=== PATIENT | male | born 1940 | race Hispanic/Latino ===

== ENCOUNTER → 2020-01-07 | Outpatient (CLI) | payer BC, MEDICARE | END | disposition home or self-care (01) | LOC: RAH 13:42 | PROVIDERS: ATTEND Family Medicine | DX: N28.1 Cyst of kidney, acquired (principal); N18.3 Chronic kidney disease, stage 3 (moderate) | CPT/HCPCS: 76770 ==

== ENCOUNTER 2021-02-19 20:00 | Emergency (ER) | payer BC, MEDICARE ==
[~2021-02-19] VITALS: Ht 175.3 cm; Wt 90.7 kg
[2021-02-19] MEDS ORDERED: NACL IV ONE (21:00)
[2021-02-19] MEDS ORDERED: LACTATED RINGERS 1000ML 1,000 ML IV ONE ×2 (21:00→21:14)
[2021-02-19 21:04] LABS: BASOPHILS % (AUTO) 0.4 % (0.0-5.0); EOSINOPHILS % (AUTO) 4.2 % (0.0-8.0); HEMATOCRIT 38.6 % (42-54); LYMPHOCYTES % (AUTO) 11.2 % (21.0-51.0); MEAN CORPUSCULAR HEMOGLOBIN 31.3 pg (27.0-33.0); MEAN CORPUSCULAR HGB CONC 35.2 g/dL (32.0-36.0); MEAN CORPUSCULAR VOLUME 88.7 fL (79-99); MONOCYTES % (AUTO) 7.9 % (3.0-13.0); NEUTROPHILS % (AUTO) 75.9 % (40.0-77.0); PLATELET COUNT (AUTO) 211 K/uL (130-400); RED BLOOD CELL COUNT(AUTO) 4.35 MIL/uL (4.50-6.20); RED CELL DISTRIBUTION WIDTH 12.2 % (11.0-15.5); WHITE BLOOD COUNT (AUTO) 13.5 K/uL (4.8-10.8)
[2021-02-19 21:13] LABS: APPEARANCE,URINE Clear (CLEAR); BILIRUBIN,URINE Negative (NEGATIVE); COLOR,URINE Yellow (YELLOW); GLUCOSE, URINE (UA) Negative (NEGATIVE); KETONES,URINE Negative (NEGATIVE); LEUKOCYTE ESTERASE ,URINE Trace (NEGATIVE); NITRATE,URINE Negative (NEGATIVE); OCCULT BLOOD,URINE Moderate (NEGATIVE); PH,URINE 6.5 (5.0-8.0); PROTEIN,URINE Trace mg/dL (NEGATIVE); UROBILINOGEN,URINE 0.2 mg/dL (0.2-1.0)
[2021-02-19 21:23] LABS: ALBUMIN 3.9 g/dL (3.5-5.0); BILIRUBIN,TOTAL 1.2 mg/dL (0.2-1.0); CREATININE 0.9 mg/dL (0.5-1.5); POTASSIUM 4.4 mmol/L (3.5-5.1); TOTAL PROTEIN, SERUM 7.8 g/dL (6.0-8.3)
[2021-02-19 21:35] LABS: BACTERIA,URINE Moderate /HPF (None Seen); CALCIUM OXALATE CRYSTALS,UR Few /LPF (None Seen); MUCUS,URINE Few LPF (None Seen); SQUAMOUS EPITHELIAL CELL,UR Few /HPF (0-2)
[2021-02-19 21:46] VITALS: BP 182/69
[2021-02-19] MEDS ORDERED: CEFTRIAXONE 1G VIAL IVP ONE (22:00)
[2021-02-19] MEDS ORDERED: 0.9%NACL 1000ML 1,000 ML IV ONE (22:07)
[2021-02-19] MEDS ORDERED: CEPH500B PO (22:13)
[2021-02-19] MEDS ORDERED: CEFTRIAXONE 1G VIAL ONE (22:15)
[2021-02-19 23:20] VITALS: BP 170/55
== END 2021-02-19 23:21 | disposition home or self-care (01) ==
LOC: EDH 20:00
DX: N39.0 Urinary tract infection, site not specified (principal); E86.9 Volume depletion, unspecified; E87.1 Hypo-osmolality and hyponatremia; E03.9 Hypothyroidism, unspecified; E11.9 Type 2 diabetes mellitus without complications; E78.5 Hyperlipidemia, unspecified; I10 Essential (primary) hypertension; Z86.73 Personal history of transient ischemic attack (TIA), and cerebral infarction without residual deficits
CPT/HCPCS: 36415; 80053; 81001; 83690; 84484; 85025; 87088; 96361 ×2; 96374; 99284; J0696; J7030; J7120

== ENCOUNTER 2024-06-24 18:02 | Emergency (ER) | payer MEDICARE, BC ==
[~2024-06-24] VITALS: Ht 175.3 cm; Wt 81.6 kg
[~2024-06-24 18:02] MED LIST: CEPH500B PO
--- NOTE | 2024-06-24 18:17 | ERN ---
ED Note History of Present Illness Stated Complaint: FALL Chief Complaint: Mechanical Fall Time Seen by MD: 18:08 Dictation: Patient comes in. Because not been acting like himself as it was last day. Also to they family believes that he has fallen. Allergies: Coded Allergies: No Known Drug Allergies (Unverified Allergy, Unknown, 02/19/21) Home Meds Active Scripts Cephalexin Monohydrate (Keflex) 500 Mg Cap, 500 MG PO TID for 10 Days, #30 CAP 0 Refills Prov:GILMA FAYE MD 02/19/21 Past Medical History Past Medical History: CVA, Hypertension, Hyperthyroid, TIA, Other Additional Past Medical Hx: PROSTATE SURGERY Surgical History: Other Surgical History Other: PROSTATE Review of System Dictation Constitutional: Negative for fever,chills, and weight loss Eyes: Negative for injury, pain,redness, and discharge ENT: Negative for injury,pain or swelling Cardiovascular: Negative for chest pain, palpitations, and edema Respiratory: Negative for shortness of breath, cough, and wheezing, Abdomen/GI: Negative for abdominal pain, nausea, vomiting, diarrhea, and constipation Back: Negative for injury and pain : Negative for injury, bleeding and discharge MS/Extremity: Negative for injury and deformity Skin: Negative for rash, and discoloration Neuro: Negative for headache, weakness, numbness, tingling, and seizure Psych: Negative for suicide ideation, homicidal ideation, and hallucinations Physical Exam Dictation General: awake, alert, NAD Head/Face: Normocephalic, atraumatic Eyes: PERRL, EOMI, vision at baseline ENT: oral cavity clear, TMs clear, no signs of infection Neck: Trachea midline, supple, no nuchal rigidity Cardiovascular: RRR, normal S1/S2, No MRGs, no JVD Respiratory: CTAB, no respiratory distress, No rales or wheezes Abdomen: Soft, non-tender, non-distended, normal bowel sounds, no guarding or rebound. Skin: Warm, dry, normal turgor, no rash MS/Extremity: Pulses equal, no cyanosis, neurovascular intact, FROM Neuro: COAx4, GCS 15, strength 5/5, CN 2-12 intact, normal cerebellar exam, normal gait, Psych: Normal behavior, mood, and affect normal ED Course ED Course Orders Procedure Category Date Status Time Cbc With Differential LAB 06/24/24 Logged 18:08 Cardiac Panel LAB 06/24/24 Logged 18:08 Chest 1vw RAD 06/24/24 Logged 18:08 12 Lead Ekg Tracing- EKG 06/24/24 Logged Technical 18:08 Urinalysis Profile LAB 06/24/24 Logged 18:08 Troponin I High LAB 06/24/24 Logged Sensitivity 18:08 Ct Head/Brain W/O CT 06/24/24 Logged Contrast 18:08 Ct Cervical Spine W/O CT 06/24/24 Logged Contrast 18:08 Ct Chest/Abd/Pelv W/O CT 06/24/24 Logged Contrast 18:08 Basic Metabolic Panel LAB 06/24/24 Logged 18:08 Ct Thoracic Spine W/O CT 06/24/24 Logged Contrast 18:11 Ct Lumbar Spine W/O CT 06/24/24 Logged Contrast 18:11 Pelvis 1-2vws RAD 06/24/24 Logged 18:11 Lipase LAB 06/24/24 Logged 18:12 Lactic Acid LAB 06/24/24 Logged 18:12 12 Lead Ekg Tracing- EKG 06/24/24 Logged Technical 18:14 Troponin Poc Order LAB 06/24/24 Logged Only 18:14 Bedside Troponin-I LAB.ER 06/24/24 In Process (Poc) 18:14 Haloperidol Inj PHA 06/24/24 In Process (Haldol Inj) 19:00 Current Medications Medications (Trade) Dose Ordered Sig/Lynn Route PRN Reason Start Time Stop Time Status Last Admin Dose Admin Haloperidol Lactate (Haldol Inj) 10 mg ONCE ONCE IM 06/24/24 19:00 06/24/24 19:01 Medical Decision Making MDM Concern for intracranial bleed and she had a thoracic intra-abdominal pathology. Do labs tests imaging. Concern for UTI. Head bleed patient was able to answer simple questions airway is currently intact I had an patient over to incoming colleague. . posterior: Code stroke so scans expedite scans DX & DISP Disposition: Inpatient Departure Impression: Primary Impression: Altered mental status Condition: Stable Referrals: CELINA HARMAN MD (PCP) QUIN NUNEZ MD Jun 24, 2024 18:17
[2024-06-24] MEDS: HALOPERIDOL INJ 5 MG/ML VIAL IM ONE (18:54)
[2024-06-24 19:04] LABS: APPEARANCE,URINE CLEAR (CLEAR); BILIRUBIN,URINE NEGATIVE (NEGATIVE); COLOR,URINE LIGHT-YELLOW (YELLOW); GLUCOSE, URINE (UA) 150 mg/dL (NEGATIVE); KETONES,URINE 10 mg/dL (NEGATIVE); LEUKOCYTE ESTERASE ,URINE NEGATIVE Leu/uL (NEGATIVE); NITRATE,URINE NEGATIVE (NEGATIVE); OCCULT BLOOD,URINE LARGE (NEGATIVE); PROTEIN,URINE 600 mg/dL (NEGATIVE); UROBILINOGEN,URINE 0.2 mg/dL (0.2-1.0)
[2024-06-24 19:11] LABS: ADD UA MICROSCOPIC YES
[2024-06-24 19:14] LABS: BASOPHILS # (AUTO) 0.08 K/uL (0.00-0.20); BASOPHILS % (AUTO) 0.5 % (0.0-5.0); EOSINOPHILS # (AUTO) 0.13 K/uL (0.00-0.70); EOSINOPHILS % (AUTO) 0.9 % (0.0-8.0); HEMATOCRIT 44.3 % (42-54); IMMATURE GRANULOCYTE ABSOLUTE 0.09 K/uL (0-1); LYMPHOCYTES # (AUTO) 1.5 K/uL (1.0-4.8); LYMPHOCYTES % (AUTO) 9.5 % (21.0-51.0); MEAN CORPUSCULAR HEMOGLOBIN 30.1 pg (27.0-33.0); MEAN CORPUSCULAR HGB CONC 33.6 g/dL (32.0-36.0); MEAN CORPUSCULAR VOLUME 89.5 fL (79-99); MONOCYTES % (AUTO) 6.6 % (3.0-13.0); NEUTROPHILS # (AUTO) 12.5 K/uL (1.8-7.7); NEUTROPHILS % (AUTO) 81.9 % (40.0-77.0); PLATELET COUNT (AUTO) 255 K/uL (130-400); RED BLOOD CELL COUNT(AUTO) 4.95 MIL/uL (4.50-6.20); RED CELL DISTRIBUTION WIDTH 13.4 % (11.0-15.5); WHITE BLOOD COUNT (AUTO) 15.2 K/uL (4.8-10.8)
[2024-06-24 19:16] LABS: CREATININE 1.2 mg/dL (0.5-1.3); POTASSIUM 4.1 mmol/L (3.5-5.1)
[2024-06-24 19:16] LABS: MUCUS,URINE RARE LPF (None Seen); RBC,URINE TNTC /HPF (0-1); SQUAMOUS EPITHELIAL CELL,UR RARE /HPF (0-2)
--- NOTE | 2024-06-24 19:17 | HMCIMG ---
CT HEAD WITHOUT CONTRAST INDICATION: Fall TECHNIQUE: Noncontrast axial helical CT images from the vertex through the skull base using 5 mm slice thickness without contrast material. Coronal and sagittal reconstructions were also included. Dose reduction techniques was used using integrated, automated and adaptive dose reduction exposure control. CT was performed with one or more of the following dose reduction techniques: Automated exposure control, adjustment of the mA and/or kV according to patient size, or use of iterative reconstruction technique. COMPARISON: None FINDINGS: Scattered and coalescent subcortical and periventricular white matter low attenuating areas likely represent residual of chronic small vessel arteriopathy and/or remote vascular insult. Chronic large left MCA territory infarct and much smaller right occipitotemporal infarct. Generalized mild cerebral cortical atrophy is present.. No evidence for abnormal extra-axial fluid collections or masses. The ventricles and sulci are normal in size and configuration. No evidence for intracranial parenchymal, epidural, or subdural hemorrhage, mass effect or midline shift. The riojas-white matter differentiation is well preserved. No secondary evidence to suggest acute ischemia. Mild calcific plaque is present along the eagle of the cavernous segments of both internal carotid arteries. The brainstem and cerebellum appear normal. The visualized orbits appear unremarkable. Mild right maxillary sinus mucosal thickening and small left maxillary sinus mucus retention cyst. Trace fluid within both renal sinuses. The calvarium appears normal. IMPRESSION: Chronic white matter ischemic changes, mild brain atrophy, and arteriosclerotic disease as described, without acute component.
--- NOTE | 2024-06-24 19:17 | HMCIMG ---
CT CERVICAL SPINE WITHOUT CONTRAST INDICATION: Neck pain after fall TECHNIQUE: Contiguous axial computed tomography imaging using 2 mm slice thickness through the cervical spine. Reconstructions in the sagittal and coronal planes. CT was performed with one or more of the following dose reduction techniques: Automated exposure control, adjustment of the mA and/or kV according to patient size, or use of iterative reconstruction technique. COMPARISON: None. FINDINGS: Normal lordosis is maintained. Vertebral bodies are normal stature without evidence for compression deformity or fracture. No evidence for subluxation. Multilevel mild to moderate cervical spondylosis. The craniocervical junction appears normal. The atlantoaxial articulation is within normal limits. The dens is intact. The pre- and paravertebral soft tissues appear unremarkable. Mild opacification of the far inferior bilateral mastoid air cells suggesting residual from prior inflammatory process, without any air-fluid levels to suggest acute component. IMPRESSION: No evidence for fracture or subluxation.
[2024-06-24] MEDS: LAbetaLOL 20MG SYG IV ONE (19:50)
[2024-06-24] MEDS ORDERED: IOHEXOL-350 75 ML VIAL IV ONE (20:15)
--- NOTE | 2024-06-24 20:57 | HMCIMG ---
CT THORACIC SPINE WITHOUT CONTRAST INDICATION: Back pain after fall. No specific site of pain/injury provided in patient history. TECHNIQUE: Axial helical 3 mm thick images obtained through the thoracic spine obtained without contrast. Coronal and sagittal reformatted images were submitted for interpretation. CT was performed with one or more of the following dose reduction techniques: Automated exposure control, adjustment of the mA and/or kV according to patient size, or use of iterative reconstruction technique. COMPARISON: None FINDINGS: Diagnostic sensitivity of this examination is limited by patient motion artifact. Vertebral bodies are normal in height, without evidence for fracture or compression deformity. No evidence for subluxation. The intervertebral discs are well-preserved. No significant disc protrusion/extrusion or moderate of high-grade neuroforaminal narrowing or central canal stenosis. Multilevel mild anterior endplate osteophytic spurring. Mild calcific plaque is present along the aortic arch and thoracic aortic eagle without aneurysmal dilation. The paravertebral soft tissues appear normal. IMPRESSION: Extensive motion artifact through the mid thoracic spine. No evidence for fracture or subluxation within the limits of this exam.
--- NOTE | 2024-06-24 21:00 | HMCIMG ---
CT LUMBAR SPINE WITHOUT CONTRAST INDICATION: Back pain after fall 7: No specific site of pain/injury provided in patient history by the ordering service. TECHNIQUE: Noncontrast helical CT of the lumbar spine obtained at 2 mm slice thickness with reconstructions in the coronal and sagittal planes. CT was performed with one or more of the following dose reduction techniques: Automated exposure control, adjustment of the mA and/or kV according to patient size, or use of iterative reconstruction technique. COMPARISON: None FINDINGS: Normal lordosis is maintained. Vertebral bodies are normal in height, without evidence for fracture or compression deformity. No evidence for subluxation. Multilevel mild anterior endplate osteophytic spurring. The sacroiliac joints appear normal. The paravertebral soft tissues appear normal. Mild calcific plaque is noted along the abdominal aortic and iliac vessel eagle without aneurysmal dilation. IMPRESSION: No specific site of pain/injury provided in patient history by the ordering service.
--- NOTE | 2024-06-24 21:03 | HMCIMG ---
CT ANGIOGRAM OF THE HEAD WITHOUT AND WITH CONTRAST. CT ANGIOGRAM OF THE NECK WITHOUT AND WITH CONTRAST. CT RECONSTRUCTIONS WITHOUT AND WITH CONTRAST. INDICATION: Stroke, fall TECHNIQUE: 3-D helical CT acquisition of the head and neck obtained before and after bolus contrast administration of 100 mL of Omnipaque 350 contrast. Volumetric data was transferred to a [employer] workstation for post processing including 3-D volumetric rendering and multiplanar reconstructions (MPR). Reconstructions reformatted in axial, sagittal, and coronal planes. CT was performed with one or more of the following dose reduction techniques: Automated exposure control, adjustment of the mA and/or kV according to patient size, or use of iterative reconstruction technique. COMPARISON: No prior studies available for comparison. FINDINGS: ANTERIOR CIRCULATION: Mild calcific plaque is present along the eagle of the cavernous segments of both internal carotid arteries. Mild calcific plaque along the petrous segment of the left internal carotid artery. The bilateral cervical, right petrous, and bilateral supraclinoid segments of the internal carotid arteries appear normal bilaterally. The bilateral anterior cerebral arteries and middle cerebral arteries and their major branch vessels appear normal. The anterior communicating artery appears normal. Both posterior communicating arteries are visualized and appear normal. No evidence of an aneurysm, significant stenosis, occlusion, or vascular malformation of the anterior circulation. POSTERIOR CIRCULATION: The vertebral arteries are normal in course and caliber. The origins of both posterior inferior cerebellar arteries appear normal. Both anterior inferior cerebellar arteries appear unremarkable. Both superior cerebellar arteries and posterior cerebral arteries appear normal. The vertebrobasilar junction and basilar artery appear unremarkable. No evidence of an aneurysm, significant stenosis, occlusion, or vascular malformation of the posterior circulation. Mild calcific plaque along the aortic arch and proximal great vessel eagle. CAROTID ARTERIES: Mild calcific plaque along the right common carotid arterial bulb eagle. Remainder of the bilateral common, external, and cervical internal carotid arteries appear normal. VERTEBRAL ARTERIES: Both vertebral arteries appear normal along the cervical spine, without evidence for dissection. IMPRESSION: No significant flow-rate limiting stenosis based on NASCET criteria. CAROTID STENOSIS REFERENCE USING NASCET CRITERIA: % ICA stenosis = (1 - narrowest ICA diameter/diameter of distal cervical ICA) x 100. Mild - <50% stenosis. Moderate - 50-69% stenosis. Severe - 70-94% stenosis. Near occlusion - 95-99% stenosis. Occluded - 100% stenosis.
--- NOTE | 2024-06-24 21:08 | HMCIMG ---
CT CHEST WITHOUT CONTRAST. CT ABDOMEN WITHOUT CONTRAST. CT PELVIS WITHOUT CONTRAST INDICATION: Fall; No specific site of pain/injury provided in patient history by the ordering service. TECHNIQUE: Routine 5 mm thick axial images were acquired from the thoracic inlet through the pelvis without contrast. CT was performed with one or more of the following dose reduction techniques: Automated exposure control, adjustment of the mA and/or kV according to patient size, or use of iterative reconstruction technique. COMPARISON: None FINDINGS: Residual contrast material from previous CT angiogram of the head and neck. CT CHEST: The heart size is normal. Coronary arterial wall calcific plaque noted. No pericardial effusion noted. Mild calcific plaque is present along the aortic arch and thoracic aortic eagle without aneurysmal dilation. The trachea and airways are patent. No evidence for pulmonary nodule, consolidation, cavitary lesion, or other abnormal pulmonary parenchymal opacity. No axillary, hilar, or mediastinal lymphadenopathy. No pleural effusion or pneumothorax identified. CT ABDOMEN: The liver is normal in size and smooth in contour without biliary duct dilation. The spleen is normal in size.. The gallbladder appears normal. The pancreas appears normal without pancreatic duct dilation. The adrenal glands appear normal. A few tiny simple right renal cyst. Left kidney appears normal. No evidence for intra-abdominal free air or free or organized fluid collection. Mild calcific plaque is noted along the abdominal aortic and iliac vessel eagle without aneurysmal dilation or dissection. CT PELVIS: No evidence for free air or free or organized pelvic fluid collection. No significant pelvic adenopathy detected. Visualized small and large bowel loops appear unremarkable. Terminal ileum also appears normal. The appendix appears normal. Prostate gland is enlarged. The urinary bladder appears unremarkable. Visible osseous structures are intact. Thoracic and lumbar spine are intact. IMPRESSION: No specific site of pain/injury provided in patient history by the ordering service, and therefore evaluation is slightly limited as a result. Enlarged prostate gland without any acute thoracic, abdominal, pelvic, or spinal injury. Arteriosclerotic disease as described.
--- NOTE | 2024-06-24 22:05 | NUR ---
SPOKE WITH SAMIRA AT [facility] [place] [facility]. TRANSFER REQUEST INITIATED.
--- NOTE | 2024-06-25 00:33 | NUR ---
[facility] [place] WAS CALLED FOR TRANSPORT
--- NOTE | 2024-06-25 00:47 | NUR ---
REPORT CALLED TO RAYNE ROMERO AT [facility] [place] [phone]
[2024-06-25 01:10] VITALS: BP 201/91; PULSE 103; RESP 18; TEMP 97.5; O2SAT 95
--- NOTE | 2024-06-25 05:11 | EKG ---
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
== END 2024-06-25 01:23 | disposition short-term general hospital (02) ==
LOC: EDH 18:02
DX: R41.82 Altered mental status, unspecified (principal); I10 Essential (primary) hypertension; Z86.73 Personal history of transient ischemic attack (TIA), and cerebral infarction without residual deficits
CPT/HCPCS: 99285; 72125; 96374; 82550; 84484 ×2; 80048; 83690; 85025; 83605 ×2; 81001; 36415; 71250; 70496; 72131; 72128; 70498; 74176; 93005; 70450; 96372; J1630; Q9967

== ENCOUNTER 2024-10-09 22:39 | Emergency (ER) | payer MEDICARE ==
[~2024-10-09] VITALS: Ht 167.6 cm; Wt 72.6 kg
[~2024-10-09 22:39] MED LIST changes: +AMLO-258 PO; +ASPI-1197 PO; +ATOR10 PO; -CEPH500B PO; +CLOP-31 PO; +HYDR25TA67 PO; +LEVE-43 PO; +LEVO75CA6 PO; +LISI40TA9 PO; +MACR100 PO; +METF-444 PO; +TAMS-55 PO
[2024-10-10 00:23] LABS: APPEARANCE,URINE CLOUDY (CLEAR); BILIRUBIN,URINE NEGATIVE (NEGATIVE); COLOR,URINE BROWN (YELLOW); GLUCOSE, URINE (UA) NEGATIVE (NEGATIVE); KETONES,URINE 60 mg/dL (NEGATIVE); LEUKOCYTE ESTERASE ,URINE 500 Leu/uL (NEGATIVE); NITRATE,URINE NEGATIVE (NEGATIVE); OCCULT BLOOD,URINE LARGE (NEGATIVE); PH,URINE 5.5 (5.0-8.0); PROTEIN,URINE 100 mg/dL (NEGATIVE); UROBILINOGEN,URINE 0.2 mg/dL (0.2-1.0)
[2024-10-10 00:24] LABS: ADD UA MICROSCOPIC YES
[2024-10-10 00:26] LABS: BACTERIA,URINE FEW /HPF (None Seen); MUCUS,URINE RARE LPF (None Seen); RBC,URINE 26-50 /HPF (0-1); SQUAMOUS EPITHELIAL CELL,UR RARE /HPF (0-2); WBC CLUMP FEW /HPF (0-1); WBC,URINE 51-100 /HPF (0-1)
--- NOTE | 2024-10-10 00:28 | NUR ---
[facility] CATH IRRIGATED 20CC/AFTER IRRIGATION URINE STARTED TO FLOW THROUGH TUBING, SEDEMENTS NOTED, NO LARGE BLOOD CLOT NOTED, URINE TEA IN COLOR.
--- NOTE | 2024-10-10 00:47 | ERN ---
ED Note History of Present Illness Stated Complaint: C/O LEAKING FROM TIP OF CATHETER Chief Complaint: Urinary Catheter Problems Time Seen by MD: 22:45 Dictation: 83-year-old male with past medical history of ischemic stroke, hypertension, hyperlipidemia, pharyngeal cancer, currently on remission, ex- smoker, seizure disorder, who presented to ED via private vehicle with complaint of bloody urine and found to have possible hemorrhagic cystitis, urinary tract infection, and hyponatremia. Who was admitted to the hospital treated and discharged at 11:00 p.m. on Macrobid and various other medications. Apparently patient was sleeping on the daughter's bed and he started leaking urine and he was concerned about the Stewart catheter and came back into the emergency room for further evaluation. Daughter at bedside also collected some urine which is blackish in color. He had a CT abdomen and pelvis which showed prostate enlargement and degenerative changes in the prostate. Temperature 98.6 pulse 110 respirations 20 blood pressure 177/66 with a pulse oximetry of 98% on room air Allergies: Coded Allergies: No Known Drug Allergies (Unverified Allergy, Unknown, 02/19/21) Home Meds Active Scripts Nitrofurantoin/Nitrofuran Mac (Macrobid) 100 Mg Cap, 1 CAP PO BID for 5 Days, #10 CAP 0 Refills Prov:MITESH LAM 10/09/24 Reported Medications Hydralazine HCl (Hydralazine HCl) 25 Mg Tablet, 10 MG PO BID, TAB 10/09/24 Levothyroxine Sodium (Levothyroxine) 75 Mcg Capsule, 1 TAB PO DAILY for 30 Days, #30 CAP 0 Refills 10/09/24 Levetiracetam (Keppra) 500 Mg Tablet, 1 TAB PO BID for 30 Days, #60 TAB 0 Refills 10/09/24 Aspirin (Aspirin) 81 Mg Tab.chew, 1 TAB PO DAILY for 30 Days, #30 TAB 0 Refills 10/09/24 Lisinopril (Lisinopril) 40 Mg Tablet, 40 MG PO BID, TAB 10/09/24 Tamsulosin HCl (Flomax) 0.4 Mg Cap.er.24h, 1 CAP PO DAILY for 30 Days, #30 CAP 0 Refills 10/09/24 Clopidogrel Bisulfate (Plavix) 75 Mg Tablet, 1 TAB PO DAILY for 30 Days, #30 TAB 0 Refills 10/09/24 Amlodipine Besylate (Amlodipine Besylate) 10 Mg Tablet, 1 TAB PO DAILY for 30 Days, #30 TAB 0 Refills 10/09/24 Atorvastatin Calcium (LIPITOR) 10 Mg Tab, 1 TAB PO DAILY for 30 Days, #30 TAB 0 Refills 10/09/24 Metformin HCl (Metformin HCl) 500 Mg Tablet, 1 TAB PO DAILY for 30 Days, #60 TAB 0 Refills 10/09/24 Discontinued Scripts Cephalexin Monohydrate (Keflex) 500 Mg Cap, 500 MG PO TID for 10 Days, #30 CAP 0 Refills Prov:GILMA FAYE MD 02/19/21 Past Medical History Past Medical History: Diabetes-Type II, High Cholesterol, Hypertension, Seizure Additional Past Medical Hx: PROSTATE SURGERY Surgical History: Unknown Surgical History Other: PROSTATE RN Note Reviewed/Agreed w/PFSH: Yes Review of System Dictation Constitutional: Negative for fever,chills, and weight loss Eyes: Negative for injury, pain,redness, and discharge ENT: Negative for injury,pain or swelling Cardiovascular: Negative for chest pain, palpitations, and edema Respiratory: Negative for shortness of breath, cough, and wheezing, Abdomen/GI: Negative for abdominal pain, nausea, vomiting, diarrhea, and constipation Back: Negative for injury and pain : Positive bleeding and indwelling Stewart catheter, malfunctioning and leaking Stewart catheter MS/Extremity: Negative for injury and deformity Skin: Negative for rash, and discoloration Neuro: Negative for headache, weakness, numbness, tingling, and seizure Psych: Negative for suicide ideation, homicidal ideation, and hallucinations Initial Vital Sign VS Vital Signs Date Time Temp Pulse Resp B/P (MAP) Pulse Ox O2 Delivery O2 Flow Rate FiO2 10/09/24 22:41 98.6 110 20 177/66 98 Room Air 10/10/24 00:43 0 21 Physical Exam Dictation General: awake, alert, NAD very pleasant elderly male Head/Face: Normocephalic, atraumatic Eyes: PERRL, EOMI, vision at baseline ENT: oral cavity clear, TMs clear, no signs of infection Neck: Trachea midline, supple, no nuchal rigidity Cardiovascular: RRR, normal S1/S2, No MRGs, no JVD Respiratory: CTAB, no respiratory distress, No rales or wheezes Abdomen: Soft, non-tender, non-distended, normal bowel sounds, no guarding or rebound. Skin: Warm, dry, normal turgor, no rash MS/Extremity: Pulses equal, no cyanosis, neurovascular intact, FROM Neuro: COAx4, GCS 15, strength 5/5, CN 2-12 intact, normal cerebellar exam, normal gait, Psych: Normal behavior, mood, and affect normal Extremities-trace edema without any palpable cords, Homans sign is negative -indwelling Stewart catheter with a 3 way valve Results (Laboratory/Radiology) Laboratory/Radiology Laboratory Tests Test 10/10/24 00:03 Urine Color BROWN (YELLOW) Urine Appearance CLOUDY (CLEAR) H Urine pH 5.5 (5.0-8.0) Urine Specific [place] 1.006 (1.001-1.031) Urine Protein 100 mg/dL (NEGATIVE) H Urine Glucose (UA) NEGATIVE mg/dL (NEGATIVE) Urine Ketones 60 mg/dL (NEGATIVE) H Urine Occult Blood LARGE (NEGATIVE) H Urine Nitrate NEGATIVE (NEGATIVE) Urine Bilirubin NEGATIVE mg/dL (NEGATIVE) Urine Urobilinogen 0.2 mg/dL (0.2-1.0) Urine Leukocyte Esterase 500 Naldo/uL (NEGATIVE) H Urine RBC 26-50 /HPF (0-1) H Urine WBC 51-100 /HPF (0-1) H Urine WBC Clumps (Auto) FEW /HPF (0-1) Urine Squamous Epithelial Cells RARE /HPF (0-2) Urine Bacteria FEW /HPF (None Seen) Labs Reviewed?: Yes ED Course ED Course Orders Procedure Category Date Status Time Urinalysis Profile LAB 10/09/24 Complete 23:14 Vital Signs Date Time Temp Pulse Resp B/P (MAP) Pulse Ox O2 Delivery O2 Flow Rate FiO2 10/10/24 00:43 98.4 94 18 161/62 100 Room Air* 0 21 10/09/24 22:41 98.6 110 20 177/66 98 Room Air We will perform diagnostic labs, and administer medications according to the patient's complaint. Once the results are available, will review and personally interpreted the labs to rule out any acute life-threatening emergency the trach require immediate intervention and treatment. I will then re-evaluate the patient after treatment and diagnostic exams have return to determine whether the patient requires any further testing, can safely be discharged home or need further admission to hospital for additional treatment and evaluation. Urinalysis showed large amounts of leuko esterase blood and WBCs. RN and I trouble shooting the Stewart catheter and the Stewart balloon seems to have decent amount of saline. Once the Stewart catheter was flushed 200 cc of urine started coming out and flowing easily. Patient already has Macrobid given during the hospital stay today at [place]. Reviewed the labs to see if there was any information about the cultures which is still pending Discharge to home to follow up with Dr. Harman his PCP and Dr. Hager, urologist Medical Decision Making MDM MDM: Differential diagnosis: Malfunctioning Stewart, leaking Stewart--persistent infection with sediment or Stewart blockage with clots or the bulb may need more saline. Rationale: Tests considered and ordered secondary to shared decision making include: Previous outside records reviewed: Old ER visits. Risk of complication and/or morbidity or mortality of patient management: None Medications-Per medication reconciliation Need for hospitalization: Patient does not meet criteria for hospitalization. Need for emergency major/minor surgery: No There are no social concerns with this patient. Prescription drug management Prescriptions will include symptomatic care Patient's prior external medical records from other ER visits were reviewed by me as indicated. Prior testing and results from previous visits were reviewed. Prior tests were taken into account with medical decision making and resource utilization, independent historian/historians were used to obtain complete medical history. I independently interpreted the test that were performed, results were reviewed by me and considered findings on radiology if ordered. Medical management and examination interpretation discussions were had by me with other qualified healthcare professionals as indicated for the patient's care. Problem List Problem List: (1) Malfunction of Stewart catheter (2) UTI (urinary tract infection) (3) Hyponatremia DX & DISP Disposition: Discharge Departure Impression: Primary Impression: Malfunction of Stewart catheter Additional Impressions: UTI (urinary tract infection), Hyponatremia Condition: Stable Additional Instructions: Patient and the caregiver have been informed of all the diagnostic tests and the imaging conducted during the today's visit to the emergency room and has verbalized understanding of the results I have personally reviewed and interpreted all diagnostic exams performed here in the ER today as well as the vital signs documented by the nursing staff. The patient is now being discharged to home and should follow up with the primary care physician or the specialist as directed by the ER staff. Follow-up with primary care provider in 1 to 2 days. Take medications as directed here in the emergency room. Okay to continue home medications unless otherwise discussed during your visit in the emergency room today. Return to your nearest emergency room if symptoms worsen or if there is no improvement. Call 911 if you need immediate assistance. Take Tylenol or Motrin [id number] as needed and if no contraindications are present. Increase or al hydration. A wound culture or urine culture was ordered here in the emergency room department please follow-up with primary care provider and advise them to get repeat ports from our facility. If you had any José wrap/splints that were applied here, please do not remove them until you see your primary care or specialty. Referrals: CELINA HARMAN MD (PCP) TARIQ LEBRON MD Oct 10, 2024 00:47
[2024-10-10 01:59] VITALS: BP 148/50; PULSE 85; RESP 18; TEMP 98.2; O2SAT 100
== END 2024-10-10 02:02 | disposition home or self-care (01) ==
LOC: EDH 22:39
DX: T83.011A Breakdown (mechanical) of indwelling urethral catheter, initial encounter (principal); N39.0 Urinary tract infection, site not specified; E11.9 Type 2 diabetes mellitus without complications; E78.00 Pure hypercholesterolemia, unspecified; E87.1 Hypo-osmolality and hyponatremia; I10 Essential (primary) hypertension; Z79.02 Long term (current) use of antithrombotics/antiplatelets; Z79.82 Long term (current) use of aspirin; Z79.84 Long term (current) use of oral hypoglycemic drugs; Z79.890 Hormone replacement therapy; Z79.899 Other long term (current) drug therapy; Y82.8 Other medical devices associated with adverse incidents; Y92.89 Other specified places as the place of occurrence of the external cause
CPT/HCPCS: 81001; 99283